=== PATIENT | male | born 1975 | race Caucasian/White ===

== ENCOUNTER 2025-02-16 10:48 | Emergency (ER) | payer SELFPAY | END 2025-02-16 13:00 | disposition home or self-care (01) | LOC: JD.ED 10:48 | DX: I83.891 Varicose veins of right lower extremity with other complications (principal); F17.200 Nicotine dependence, unspecified, uncomplicated; Z88.0 Allergy status to penicillin | CPT/HCPCS: 99283; 99284 ==